=== PATIENT | female | born 1965 | race Caucasian/White ===

== ENCOUNTER 2021-07-02 10:23 | Outpatient (CLI) | payer MEDICAID, SELFPAY ==
[2021-07-02 12:41] LABS: T4 Free Direct 1.14 ng/dL (0.76-1.46); Thyroid Stim Hormone (TSH) 2.85 uIU/mL (0.358-3.74)
[2021-07-02 13:04] LABS: Hemoglobin A1c 5.8 % (3.8-5.6)
== END 2021-07-02 23:59 | disposition home or self-care (01) ==
LOC: BIMLAB 10:24
PROVIDERS: Referring Provider Internal Medicine Endocrinology, Diabetes & Metabolism; Visit Provider Internal Medicine Endocrinology, Diabetes & Metabolism
DX: R73.03 Prediabetes (principal); E03.8 Other specified hypothyroidism; E06.3 Autoimmune thyroiditis
CPT/HCPCS: 36415; 83036; 84439; 84443